=== PATIENT | female | born 1955 | race Two or more races ===

== ENCOUNTER 2023-01-21 13:59 | Inpatient (IN) | payer MEDICARE ==
[~2023-01-21] VITALS: Ht 174 cm; Wt 187.8 kg
[2023-01-21 15:47] LABS: Basophils # (auto) 0 10 ^3/uL (0-0.2); Basophils % (auto) 0.4 % (0.0-2.0); Eosinophils # (auto) 0 10 ^3/uL (0-0.8); Eosinophils % (auto) 0.1 % (0.0-7.0); Hemoglobin 13.3 g/dL (12.2-16.2); Lymphocytes # (auto) 0.8 10 ^3/uL (0.4-5.4); Lymphocytes % (auto) 9.9 % (10.0-50.0); Mean Corpuscular Hemoglobin 28.3 pg (28.0-32.0); Mean Corpuscular Hgb Conc. 33.3 g/dL (32.0-36.0); Monocytes # (auto) 0.5 10 ^3/uL (0-1.3); Monocytes % (auto) 5.7 % (0.0-12.0); Neutrophils # (auto) 6.7 10 ^3/uL (1.6-8.6); Neutrophils % (auto) 83.9 % (37.0-80.0); Nucleated Red Blood Cells % 0.2 %; Red Cell Distribution Width 14.6 % (11.8-14.3)
[2023-01-21 15:57] LABS: Albumin 3.5 g/dL (3.4-5.0); BUN/Creatinine Ratio 19.3; Bilirubin, Total 2.2 mg/dL (0.2-1.0); Calcium 8.9 mg/dL (8.5-10.1); Magnesium 2.3 mg/dL (1.6-2.6); Potassium 4.8 mmol/L (3.5-5.1); Total Protein 6.5 g/dL (6.4-8.2)
[2023-01-21] MEDS ORDERED: dilTIAZem 25 MG/5 ML VIAL IV ONE (17:45)
[2023-01-21] MEDS ORDERED: FUROSEMIDE 20 MG/2 ML VIAL IV ONE (18:45)
[2023-01-21] MEDS ORDERED: NITROGLYCERIN 0.4 MG SL TAB SL PRN (18:45)
[2023-01-21] MEDS ORDERED: MORPHINE SULFATE INJ 2 MG/ml SYRG IV PRN (18:45)
[2023-01-21] MEDS ORDERED: ACETAMINOPHEN 325 MG TAB PO PRN (18:45)
[2023-01-21] MEDS ORDERED: PANTOPRAZOLE 40 MG/10 ML VIAL INJ IV ONE (18:45)
[2023-01-21] MEDS ORDERED: MET25T PO (18:54)
[2023-01-21] MEDS ORDERED: SIMV10TA84 PO (18:54)
[2023-01-21] MEDS ORDERED: ALBUTEROL SULF 2.5 MG/0.5ML(0.5%) NEB SOLN NEB PRN (19:00)
[2023-01-21 19:03] LABS: INR 1.03 (0.9-1.15)
[2023-01-21 19:05] LABS: Cholesterol 118 mg/dL (< 200); LDL Cholesterol 76 mg/dL (< 100); Triglycerides 101 mg/dL (< 150)
[2023-01-21 19:07] LABS: HDL Cholesterol 35 mg/dL (40-59)
[2023-01-21] MEDS ORDERED: IOHEXOL 350 MG/ML 100ML IJ ONE ×2 (19:38→20:11)
[2023-01-21 20:00] VITALS: BP 130/92
[2023-01-21] MEDS: METOPROLOL TARTRATE 25 MG TAB PO SCH (22:16)
[2023-01-22 06:19] LABS: Basophils # (auto) 0 10 ^3/uL (0-0.2); Basophils % (auto) 0.6 % (0.0-2.0); Eosinophils # (auto) 0.1 10 ^3/uL (0-0.8); Eosinophils % (auto) 1.1 % (0.0-7.0); Hematocrit 38.3 % (36.0-46.0); Hemoglobin 12.4 g/dL (12.2-16.2); Lymphocytes # (auto) 1.2 10 ^3/uL (0.4-5.4); Lymphocytes % (auto) 19.9 % (10.0-50.0); Mean Corpuscular Hemoglobin 28.4 pg (28.0-32.0); Mean Corpuscular Hgb Conc. 32.4 g/dL (32.0-36.0); Mean Corpuscular Volume 87.5 fL (80.0-100.0); Monocytes # (auto) 0.6 10 ^3/uL (0-1.3); Monocytes % (auto) 9.8 % (0.0-12.0); Neutrophils % (auto) 68.6 % (37.0-80.0); Red Blood Cells 4.38 10^6/uL (4.0-5.20); Red Cell Distribution Width 14.9 % (11.8-14.3); White Blood Cell 5.9 10^3/uL (4.4-10.8)
[2023-01-22 06:48] LABS: Albumin 3.1 g/dL (3.4-5.0); BUN/Creatinine Ratio 15.3; Calcium 8.4 mg/dL (8.5-10.1); Potassium 4.3 mmol/L (3.5-5.1)
[2023-01-22 06:50] LABS: Bilirubin, Total 2.2 mg/dL (0.2-1.0); Total Protein 6.1 g/dL (6.4-8.2)
[2023-01-22] MEDS: FUROSEMIDE 20 MG/2 ML VIAL IV SCH (11:14)
[2023-01-22] MEDS: PANTOPRAZOLE 40 MG/10 ML VIAL INJ IV SCH (11:14)
[2023-01-22] MEDS: METOPROLOL TARTRATE 25 MG TAB PO SCH ×2 (11:15→22:17)
[2023-01-22] MEDS: PRAVASTATIN SODIUM 20 MG TAB PO SCH (11:15)
[2023-01-22] MEDS: ENOXAPARIN SOD 40 MG/0.4 ML SYRINGE SC SCH ×2 (11:15→22:16)
[2023-01-22] MEDS: ASPirin 81 mg TAB PO SCH (16:16)
[2023-01-22 22:46] VITALS: BP 109/70
[2023-01-22 23:26] VITALS: BP_SYST 109; BP_DIAS 70; BP_DIAS 71
[2023-01-23 05:00] VITALS: BP 130/69
[2023-01-23 07:12] LABS: Basophils # (auto) 0 10 ^3/uL (0-0.2); Basophils % (auto) 0.5 % (0.0-2.0); Eosinophils # (auto) 0.1 10 ^3/uL (0-0.8); Eosinophils % (auto) 1.3 % (0.0-7.0); Hematocrit 36.9 % (36.0-46.0); Hemoglobin 11.9 g/dL (12.2-16.2); Lymphocytes # (auto) 1.1 10 ^3/uL (0.4-5.4); Lymphocytes % (auto) 17.9 % (10.0-50.0); Mean Corpuscular Hemoglobin 28.3 pg (28.0-32.0); Mean Corpuscular Hgb Conc. 32.4 g/dL (32.0-36.0); Mean Corpuscular Volume 87.3 fL (80.0-100.0); Monocytes # (auto) 0.7 10 ^3/uL (0-1.3); Monocytes % (auto) 11.3 % (0.0-12.0); Neutrophils # (auto) 4.1 10 ^3/uL (1.6-8.6); Nucleated Red Blood Cells % 0.1 %; Red Blood Cells 4.22 10^6/uL (4.0-5.20); Red Cell Distribution Width 14.7 % (11.8-14.3)
[2023-01-23 07:41] LABS: BUN/Creatinine Ratio 21.6; Calcium 8.3 mg/dL (8.5-10.1); Magnesium 2.3 mg/dL (1.6-2.6); Potassium 4.1 mmol/L (3.5-5.1)
[2023-01-23 08:32] VITALS: BP 107/64
[2023-01-23] MEDS: PANTOPRAZOLE 40 MG/10 ML VIAL INJ IV SCH (09:39)
[2023-01-23] MEDS: PRAVASTATIN SODIUM 20 MG TAB PO SCH (09:39)
[2023-01-23] MEDS: ASPirin 81 mg TAB PO SCH (09:39)
[2023-01-23] MEDS: ENOXAPARIN SOD 40 MG/0.4 ML SYRINGE SC SCH (09:39)
[2023-01-23] MEDS: METOPROLOL TARTRATE 25 MG TAB PO SCH ×2 (09:40→21:50)
[2023-01-23] MEDS: FUROSEMIDE 20 MG/2 ML VIAL IV SCH (09:40)
[2023-01-23 12:32] VITALS: BP 102/63
[2023-01-23] MEDS ORDERED: APIX5TAB PO (15:58)
[2023-01-23] MEDS ORDERED: FURO1TAB33 PO (15:58)
[2023-01-23] MEDS ORDERED: MET25T PO (15:58)
[2023-01-23 16:17] VITALS: BP 101/69
[2023-01-23] MEDS: APIXABAN 5 MG TAB PO SCH (21:50)
[2023-01-23 22:00] VITALS: BP 104/84
[2023-01-24 05:00] VITALS: BP 97/60
[2023-01-24 08:42] VITALS: BP 101/67
[2023-01-24] MEDS: FUROSEMIDE 20 MG/2 ML VIAL IV SCH (10:00)
[2023-01-24] MEDS: METOPROLOL TARTRATE 25 MG TAB PO SCH (10:00)
[2023-01-24] MEDS: PRAVASTATIN SODIUM 20 MG TAB PO SCH (10:24)
[2023-01-24] MEDS: PANTOPRAZOLE 40 MG/10 ML VIAL INJ IV SCH (10:25)
[2023-01-24] MEDS: APIXABAN 5 MG TAB PO SCH (10:25)
[2023-01-24 13:42] VITALS: BP 123/85
[2023-01-24 15:07] VITALS: BP 105/72
[2023-01-24 16:18] VITALS: BP 96/58
== END 2023-01-24 17:30 | disposition home or self-care (01) | DRG 291 ==
LOC: ER 13:59 → TELE 18:34 → TELE-WESTW 01-22 21:03
PROVIDERS: ADMIT Nurse Practitioner Family; ATTEND Nurse Practitioner Acute Care
DX: I11.0 Hypertensive heart disease with heart failure (principal); I50.23 Acute on chronic systolic (congestive) heart failure; J96.01 Acute respiratory failure with hypoxia; I48.19 Other persistent atrial fibrillation; Z68.44 Body mass index [BMI] 60.0-69.9, adult; J91.8 Pleural effusion in other conditions classified elsewhere; I42.0 Dilated cardiomyopathy; E66.9 Obesity, unspecified; Z20.822 Contact with and (suspected) exposure to COVID-19; Z79.01 Long term (current) use of anticoagulants; Z79.899 Other long term (current) drug therapy; Z85.21 Personal history of malignant neoplasm of larynx
CPT/HCPCS: 36415; 71045; 71275; 80048; 80053; 80061; 83036; 83735; 83880; 84443; 84484; 85025; 85379; 85610; 87426; 93005; 93306; 99291; C9113; G0378

== ENCOUNTER 2024-06-24 15:33 | Inpatient (IN) | payer MEDICARE, OTHER ==
[~2024-06-24] VITALS: Ht 172.7 cm; Wt 169.5 kg
[~2024-06-24 15:33] MED LIST: APIX5TAB PO; FURO1TAB33 PO; MET25T PO; SIMV10TA20 PO
[2024-06-24 15:48] VITALS: PULSE 124; RESP 23; O2SAT 94
[2024-06-24] MEDS: dilTIAZem 25 MG/5 ML VIAL IV ONE (16:27)
[2024-06-24 17:17] LABS: Chloride 105 mmol/L (98-107); Potassium 4.6 mmol/L (3.5-5.1); Sodium 139 mmol/L (136-145)
[2024-06-24 17:18] LABS: Anion Gap 7 (5-15); Calcium 9.2 mg/dL (8.7-10.4); Carbon Dioxide 27 mmol/L (20-30)
[2024-06-24 17:23] LABS: BUN/Creatinine Ratio 10.1 (10.0-20.0); Blood Urea Nitrogen 15 mg/dL (9-23); Glucose 100 mg/dL (74-106)
[2024-06-24 17:26] LABS: Basophils # (auto) 0 10 ^3/uL (0-0.2); Basophils % (auto) 0.5 % (0.0-2.0); Eosinophils # (auto) 0 10 ^3/uL (0-0.8); Eosinophils % (auto) 0.2 % (0.0-7.0); Hematocrit 38.5 % (36.0-46.0); Hemoglobin 12.3 g/dL (12.2-16.2); Lymphocytes # (auto) 0.5 10 ^3/uL (0.4-5.4); Lymphocytes % (auto) 8.2 % (10.0-50.0); Mean Corpuscular Hemoglobin 26.8 pg (28.0-32.0); Mean Corpuscular Hgb Conc. 31.9 g/dL (32.0-36.0); Mean Corpuscular Volume 84.1 fL (80.0-100.0); Monocytes # (auto) 0.7 10 ^3/uL (0-1.3); Monocytes % (auto) 11.7 % (0.0-12.0); Neutrophils # (auto) 4.5 10 ^3/uL (1.6-8.6); Neutrophils % (auto) 79.4 % (37.0-80.0); Nucleated Red Blood Cells % 0.2 %; Platelet Count (auto) 261 10^3/uL (140-450); Red Blood Cells 4.58 10^6/uL (4.0-5.20); White Blood Cell 5.6 10^3/uL (4.4-10.8)
[2024-06-24 17:27] LABS: Red Cell Distribution Width 22.7 % (11.8-14.3)
[2024-06-24 19:43] VITALS: PULSE 105; RESP 19; O2SAT 96
[2024-06-24] MEDS ORDERED: ONDANSETRON HCL 4 MG/2 ML VIAL IV PRN (21:15)
[2024-06-24] MEDS ORDERED: NITROGLYCERIN 0.4 MG SL TAB SL PRN (21:15)
[2024-06-24] MEDS ORDERED: MORPHINE SULFATE INJ 2 MG/ml SYRG IV PRN (21:15)
[2024-06-24] MEDS: FUROSEMIDE 40 MG/4 ML VIAL IV ONE (21:29)
[2024-06-24] MEDS: APIXABAN 5 MG TAB PO SCH (21:30)
[2024-06-24] MEDS: ATORVASTATIN 20 MG TAB PO SCH (21:30)
[2024-06-24] MEDS: CARVEDILOL 3.125 MG TAB PO SCH (21:31)
[2024-06-24 21:54] LABS: INR 1.18 (0.9-1.15); Partial Thromboplastin Time 30.8 SEC (24.5-34.5); Prothrombin Time 12.4 sec (9.3-11.8)
[2024-06-24 23:26] VITALS: BP 126/93; PULSE 67; RESP 20; O2SAT 96
[2024-06-25] VITALS (9 sets, daily range): BP systolic 96–126; BP diastolic 58–93; PULSE 37–87; RESP 18–24; TEMP 97.7–98.2; O2SAT 90–99
[2024-06-25] MEDS ORDERED: SPIR25TA8 PO (01:33)
[2024-06-25] MEDS ORDERED: BUME1TAB3 PO (01:33)
[2024-06-25] MEDS ORDERED: POTA-36 PO (01:33)
[2024-06-25] MEDS: cefTRIAXone 1GM/50ML D5W 50 ML IV SCH (05:53)
[2024-06-25] MEDS: FUROSEMIDE 20 MG/2 ML VIAL IV SCH (06:06)
[2024-06-25 07:13] LABS: Basophils # (auto) 0 10 ^3/uL (0-0.2); Basophils % (auto) 0.7 % (0.0-2.0); Chloride 104 mmol/L (98-107); Eosinophils # (auto) 0 10 ^3/uL (0-0.8); Eosinophils % (auto) 1.2 % (0.0-7.0); Hematocrit 34.2 % (36.0-46.0); Hemoglobin 11.4 g/dL (12.2-16.2); Lymphocytes # (auto) 0.5 10 ^3/uL (0.4-5.4); Lymphocytes % (auto) 12.2 % (10.0-50.0); Mean Corpuscular Hemoglobin 27.9 pg (28.0-32.0); Mean Corpuscular Hgb Conc. 33.2 g/dL (32.0-36.0); Mean Corpuscular Volume 83.9 fL (80.0-100.0); Monocytes # (auto) 0.5 10 ^3/uL (0-1.3); Monocytes % (auto) 13.4 % (0.0-12.0); Neutrophils # (auto) 2.8 10 ^3/uL (1.6-8.6); Neutrophils % (auto) 72.5 % (37.0-80.0); Nucleated Red Blood Cells % 0.2 %; Platelet Count (auto) 213 10^3/uL (140-450); Red Blood Cells 4.08 10^6/uL (4.0-5.20); Red Cell Distribution Width 23.3 % (11.8-14.3); Sodium 139 mmol/L (136-145); White Blood Cell 3.9 10^3/uL (4.4-10.8)
[2024-06-25 07:14] LABS: Anion Gap 4 (5-15); Carbon Dioxide 31 mmol/L (20-30)
[2024-06-25 07:15] LABS: Calcium 8.8 mg/dL (8.7-10.4)
[2024-06-25 07:19] LABS: BUN/Creatinine Ratio 10.9 (10.0-20.0); Blood Urea Nitrogen 16 mg/dL (9-23); Glucose 85 mg/dL (74-106)
[2024-06-25] MEDS: SPIRONOLACTONE 25 MG TAB PO SCH (10:58)
[2024-06-25] MEDS: FUROSEMIDE 40 MG/4 ML VIAL IV ONE (11:15)
[2024-06-25] MEDS: FUROSEMIDE 20 MG/2 ML VIAL IV ONE (12:45)
[2024-06-25] MEDS: FUROSEMIDE 40 MG/4 ML VIAL IV SCH (18:19)
[2024-06-25] MEDS: SACUBITRIL-VALSARTAN 24mg/26mg TAB PO SCH (21:21)
[2024-06-26] VITALS (9 sets, daily range): BP systolic 88–114; BP diastolic 51–66; PULSE 68–97; RESP 17–21; TEMP 97.4–98.7; O2SAT 91–99
[2024-06-26 06:38] LABS: Basophils # (auto) 0 10 ^3/uL (0-0.2); Eosinophils # (auto) 0.1 10 ^3/uL (0-0.8); Lymphocytes # (auto) 0.5 10 ^3/uL (0.4-5.4); Monocytes # (auto) 0.6 10 ^3/uL (0-1.3); Neutrophils # (auto) 3.5 10 ^3/uL (1.6-8.6)
[2024-06-26 06:42] LABS: Basophils % (auto) 0.6 % (0.0-2.0); Eosinophils % (auto) 1.2 % (0.0-7.0); Hematocrit 39.7 % (36.0-46.0); Hemoglobin 12.6 g/dL (12.2-16.2); Lymphocytes % (auto) 10.6 % (10.0-50.0); Mean Corpuscular Hemoglobin 26.9 pg (28.0-32.0); Mean Corpuscular Hgb Conc. 31.7 g/dL (32.0-36.0); Mean Corpuscular Volume 84.8 fL (80.0-100.0); Monocytes % (auto) 13.3 % (0.0-12.0); Neutrophils % (auto) 74.3 % (37.0-80.0); Nucleated Red Blood Cells % 0.3 %; Platelet Count (auto) 244 10^3/uL (140-450); Red Blood Cells 4.68 10^6/uL (4.0-5.20); Red Cell Distribution Width 23.2 % (11.8-14.3); White Blood Cell 4.7 10^3/uL (4.4-10.8)
[2024-06-26 07:02] LABS: Alanine Aminotransferase 12 U/L (7-40); Albumin 3.6 g/dL (3.2-4.8); Alkaline Phosphatase 78 U/L (46-116); Anion Gap 3 (5-15); Aspartate Aminotransferase 10 U/L (13-40); BUN/Creatinine Ratio 9.5 (10.0-20.0); Bilirubin, Total 2.5 mg/dL (0.2-1.0); Blood Urea Nitrogen 15 mg/dL (9-23); Calcium 8.7 mg/dL (8.7-10.4); Carbon Dioxide 35 mmol/L (20-30); Chloride 100 mmol/L (98-107); Glucose 86 mg/dL (74-106); Potassium 3.8 mmol/L (3.5-5.1); Sodium 138 mmol/L (136-145)
[2024-06-26 07:03] LABS: Total Protein 5.9 g/dL (5.7-8.2)
[2024-06-26] MEDS: FUROSEMIDE 40 MG/4 ML VIAL IV SCH (13:00)
[2024-06-26] MEDS ORDERED: CARV3.1240 PO (17:04)
[2024-06-26] MEDS ORDERED: POTA-180 PO (17:04)
[2024-06-26 18:18] LABS: Urine Bacteria FEW /hpf (None Seen); Urine Blood Negative /uL (Negative); Urine Clarity Clear (Clear); Urine Color Light-Yellow (Yellow); Urine Hyaline Cast MOD /lpf (0 - 2); Urine Mucus FEW (None Seen); Urine Protein, UAD Negative (Negative); Urine Specific Gravity 1.008 (1.001-1.035); Urine Urobilinogen Normal (Negative); Urine WBC 1 /hpf (0 - 5)
[2024-06-26] MEDS ORDERED: METOPROLOL TARTRATE 25 MG TAB PO SCH (22:00)
[2024-06-27] VITALS (18 sets, daily range): BP systolic 87–109; BP diastolic 55–70; PULSE 67–93; RESP 14–20; TEMP 97.3–98; O2SAT 89–100
[2024-06-27 07:08] LABS: Basophils # (auto) 0 10 ^3/uL (0-0.2); Basophils % (auto) 0.5 % (0.0-2.0); Eosinophils # (auto) 0.1 10 ^3/uL (0-0.8); Hematocrit 43.4 % (36.0-46.0); Hemoglobin 13.7 g/dL (12.2-16.2); Lymphocytes # (auto) 0.7 10 ^3/uL (0.4-5.4); Mean Corpuscular Hemoglobin 26.5 pg (28.0-32.0); Mean Corpuscular Hgb Conc. 31.5 g/dL (32.0-36.0); Mean Corpuscular Volume 84.2 fL (80.0-100.0); Monocytes # (auto) 0.7 10 ^3/uL (0-1.3); Neutrophils # (auto) 3.4 10 ^3/uL (1.6-8.6); Neutrophils % (auto) 68.5 % (37.0-80.0); Nucleated Red Blood Cells % 0.3 %; Platelet Count (auto) 275 10^3/uL (140-450); Red Blood Cells 5.15 10^6/uL (4.0-5.20)
[2024-06-27 07:11] LABS: Red Cell Distribution Width 23.2 % (11.8-14.3)
[2024-06-27 07:24] LABS: Albumin 3.6 g/dL (3.2-4.8); Alkaline Phosphatase 76 U/L (46-116); Aspartate Aminotransferase 11 U/L (13-40); BUN/Creatinine Ratio 10.1 (10.0-20.0); Bilirubin, Total 2.2 mg/dL (0.2-1.0); Blood Urea Nitrogen 14 mg/dL (9-23); Calcium 8.9 mg/dL (8.7-10.4); Chloride 97 mmol/L (98-107); Glucose 86 mg/dL (74-106); Potassium 3.5 mmol/L (3.5-5.1); Sodium 138 mmol/L (136-145)
[2024-06-27 07:30] LABS: Alanine Aminotransferase < 9 U/L (7-40); Anion Gap 0.99999 (5-15)
[2024-06-27 07:32] LABS: Carbon Dioxide > 40 mmol/L (20-30)
[2024-06-27 09:12] LABS: Base Excess 8.4 mmol/L (-2.0-2.0)
[2024-06-27] MEDS: IPRATROPIUM BROM 0.5 MG/2.5ML INH SOL NEB PRN (09:52)
[2024-06-27] MEDS: ALBUTEROL SULF 2.5 MG/0.5ML(0.5%) NEB SOLN NEB PRN (09:52)
[2024-06-27] MEDS: POTASSIUM CHL 20 Meq TABLET PO ONE (11:22)
[2024-06-27] MEDS: METOPROLOL SUCCINATE XL 50 MG TAB PO SCH (11:27)
[2024-06-27] MEDS: metOLazone 5 MG TAB PO ONE (11:28)
[2024-06-27] MEDS: MAGNESIUM SULFATE 1GM/100ML 100 ML IV SCH (13:35)
[2024-06-27] MEDS: methylPREDNISolone SOD SUCC 40 MG/ML VL IV ONE (16:50)
[2024-06-28] VITALS (17 sets, daily range): BP systolic 84–113; BP diastolic 48–79; PULSE 68–96; RESP 16–24; TEMP 97.5–98.4; O2SAT 86–99
[2024-06-28 06:59] LABS: Basophils # (auto) 0 10 ^3/uL (0-0.2); Eosinophils # (auto) 0 10 ^3/uL (0-0.8); Hematocrit 44.6 % (36.0-46.0); Hemoglobin 14.3 g/dL (12.2-16.2); Lymphocytes # (auto) 0.7 10 ^3/uL (0.4-5.4); Lymphocytes % (auto) 12.6 % (10.0-50.0); Mean Corpuscular Hemoglobin 26.9 pg (28.0-32.0); Mean Corpuscular Hgb Conc. 32.1 g/dL (32.0-36.0); Mean Corpuscular Volume 83.9 fL (80.0-100.0); Monocytes # (auto) 0.1 10 ^3/uL (0-1.3); Monocytes % (auto) 2.4 % (0.0-12.0); Neutrophils # (auto) 4.5 10 ^3/uL (1.6-8.6); Nucleated Red Blood Cells % 0.2 %; Platelet Count (auto) 324 10^3/uL (140-450); Red Blood Cells 5.32 10^6/uL (4.0-5.20); White Blood Cell 5.3 10^3/uL (4.4-10.8)
[2024-06-28 07:01] LABS: Red Cell Distribution Width 22.7 % (11.8-14.3)
[2024-06-28 07:19] LABS: Alanine Aminotransferase 14 U/L (7-40); Alkaline Phosphatase 74 U/L (46-116); Anion Gap 6 (5-15); Aspartate Aminotransferase 11 U/L (13-40); Blood Urea Nitrogen 13 mg/dL (9-23); Calcium 9.2 mg/dL (8.7-10.4); Carbon Dioxide 38 mmol/L (20-30); Chloride 91 mmol/L (98-107); Glucose 123 mg/dL (74-106); Magnesium 1.9 mg/dL (1.6-2.6); Potassium 3.8 mmol/L (3.5-5.1); Sodium 135 mmol/L (136-145)
[2024-06-28 07:20] LABS: Bilirubin, Total 2.3 mg/dL (0.2-1.0); Total Protein 6.8 g/dL (5.7-8.2)
[2024-06-28 08:38] LABS: Anisocytosis Slight; Platelet Estimate Adequate
[2024-06-28] MEDS: methylPREDNISolone SOD SUCC 40 MG/ML VL IV SCH (09:27)
[2024-06-28] MEDS: ACETAMINOPHEN 325 MG TAB PO PRN (23:26)
[2024-06-29 05:00] VITALS: BP 97/52; PULSE 86; RESP 19; TEMP 97.4; O2SAT 95
[2024-06-29 06:52] VITALS: O2SAT 100
[2024-06-29 07:05] LABS: Basophils # (auto) 0 10 ^3/uL (0-0.2); Eosinophils # (auto) 0 10 ^3/uL (0-0.8); Hemoglobin 12.6 g/dL (12.2-16.2); Lymphocytes # (auto) 0.7 10 ^3/uL (0.4-5.4); Lymphocytes % (auto) 9.6 % (10.0-50.0); Mean Corpuscular Hemoglobin 26.9 pg (28.0-32.0); Mean Corpuscular Hgb Conc. 32.2 g/dL (32.0-36.0); Mean Corpuscular Volume 83.4 fL (80.0-100.0); Monocytes # (auto) 0.5 10 ^3/uL (0-1.3); Monocytes % (auto) 6.6 % (0.0-12.0); Neutrophils # (auto) 6.1 10 ^3/uL (1.6-8.6); Neutrophils % (auto) 83.8 % (37.0-80.0); Nucleated Red Blood Cells % 0.1 %; Platelet Count (auto) 279 10^3/uL (140-450); Red Blood Cells 4.68 10^6/uL (4.0-5.20); White Blood Cell 7.3 10^3/uL (4.4-10.8)
[2024-06-29 07:06] LABS: Red Cell Distribution Width 22.7 % (11.8-14.3)
[2024-06-29 07:36] LABS: Alanine Aminotransferase 12 U/L (7-40); Alkaline Phosphatase 59 U/L (46-116); BUN/Creatinine Ratio 12.7 (10.0-20.0); Blood Urea Nitrogen 17 mg/dL (9-23); Calcium 9.2 mg/dL (8.7-10.4); Chloride 91 mmol/L (98-107); Glucose 104 mg/dL (74-106); Potassium 3.8 mmol/L (3.5-5.1); Sodium 135 mmol/L (136-145)
[2024-06-29 07:38] LABS: Albumin 3.4 g/dL (3.2-4.8); Aspartate Aminotransferase 10 U/L (13-40)
[2024-06-29 07:39] LABS: Anion Gap 3.99999 (5-15); Total Protein 5.5 g/dL (5.7-8.2)
[2024-06-29 07:41] LABS: Carbon Dioxide > 40 mmol/L (20-30)
[2024-06-29 08:00] VITALS: PULSE 76
[2024-06-29 08:53] VITALS: BP 94/61; PULSE 82; RESP 16; TEMP 98.3; O2SAT 93
[2024-06-29] MEDS ORDERED: SACU1TAB PO (10:51)
[2024-06-29] MEDS ORDERED: METO-6 PO (10:51)
[2024-06-29 13:24] VITALS: BP 98/67; PULSE 71; RESP 16; TEMP 98.3; O2SAT 90
[2024-06-29] MEDS ORDERED: SACUBITRIL-VALSARTAN 24mg/26mg TAB PO SCH (22:00)
== END 2024-06-29 16:00 | disposition home or self-care (01) | DRG 291 ==
LOC: ER 15:33 → EDBD 15:33 → EDUNIT# 15:33 → TELE 21:08 → TELE-WESTW 21:08
PROVIDERS: ADMIT Internal Medicine; ATTEND Internal Medicine
PROC: 5A09357 Assistance with Respiratory Ventilation, Less than 24 Consecutive Hours, Continuous Positive Airway Pressure (ICD-10-PCS; principal; 2024-06-27)
PROC: 5A09357 Assistance with Respiratory Ventilation, Less than 24 Consecutive Hours, Continuous Positive Airway Pressure (ICD-10-PCS; 2024-06-28)
DX: I13.0 Hypertensive heart and chronic kidney disease with heart failure and stage 1 through stage 4 chronic kidney disease, or unspecified chronic kidney disease (principal); I50.23 Acute on chronic systolic (congestive) heart failure; J96.01 Acute respiratory failure with hypoxia; N17.9 Acute kidney failure, unspecified; D68.9 Coagulation defect, unspecified; Z68.43 Body mass index [BMI] 50.0-59.9, adult; I48.20 Chronic atrial fibrillation, unspecified; E66.2 Morbid (severe) obesity with alveolar hypoventilation; N18.9 Chronic kidney disease, unspecified; D64.9 Anemia, unspecified; Z82.49 Family history of ischemic heart disease and other diseases of the circulatory system; Z85.21 Personal history of malignant neoplasm of larynx
CPT/HCPCS: 36415; 36600; 71045; 76604; 80048; 80053; 81001; 82805; 83735; 83880; 84484; 85025; 85610; 85730; 93005; 93306; 93971; 94640; 94660; 96374; 99291; G0378